=== PATIENT | male | born 2000 | race Caucasian/White ===

== ENCOUNTER 2024-02-14 22:39 | Emergency (ER) | payer BC, SELFPAY ==
[2024-02-14 22:40] VITALS: BP 134/83; PULSE 99; RESP 20; TEMP 36.4; O2SAT 100
[2024-02-15 03:36] VITALS: BP 122/64; PULSE 77; RESP 15; O2SAT 100
--- NOTE | 2024-02-15 05:02 | ED.GENADULT ---
HPI - General Adult General Chief complaint: Wound/Laceration Stated complaint: L arm laceration Time Seen by Provider: 02/15/24 04:18 History of Present Illness HPI narrative: patient 23-year-old gentleman who presents emergency department with chief complaint of laceration to left forearm. The patient reports that he was following his cat and fell patient reports that he has laceration to his left forearm. Patient reports that he has no numbness or tingling in his hand has full range of motion of his hand the patient reports no loss of consciousness reports he is unsure of his last tetanus. Related Data Allergies Allergy/AdvReac Type Severity Reaction Status Date / Time No Known Allergies Allergy Verified 02/15/24 03:37 Review of Systems Review of Systems: A 10 system review of systems was completed on the patient and is negative except for what is stated in the HPI. Nursing and ancillary documentation was reviewed. Exam Narrative: GENERAL: Well-appearing, well-nourished, and in no acute distress. HEAD: Normocephalic, atraumatic. EYES: PERRLA and EOMI. ENT: Nares clear, no rhinorrhea or epistaxis. Mucous membranes moist. NECK: Supple. CHEST: Clear to auscultation. No respiratory distress. HEART: Regular rate and rhythm. No murmur heard. Normal peripheral pulses. ABDOMEN: Soft, nontender, nondistended, normal active bowel sounds. EXTREMITIES: Normal range of motion. No edema. 6 cm laceration left forearm patient is intact motor and sensory distally injury full range of motion of the hand without difficulty no weakness present there is no exposed bone no exposed tendon SKIN: Warm, dry, no rash. NEURO: No focal deficits. Alert and oriented x3. PSYCH: Normal mood and affect. Course Vital Signs Vital signs: Vital Signs Temperature 36.4 C 02/14/24 22:40 Pulse Rate 99 02/14/24 22:40 Respiratory Rate 20 02/14/24 22:40 Blood Pressure 134/83 02/14/24 22:40 Pulse Oximetry 100 02/14/24 22:40 Oxygen Delivery Room Air 02/14/24 22:40 Temperature 36.4 C 02/14/24 22:40 Pulse Rate 77 02/15/24 03:36 Respiratory Rate 15 02/15/24 03:36 Blood Pressure 122/64 02/15/24 03:36 Pulse Oximetry 100 02/15/24 03:36 Oxygen Delivery Room Air 02/14/24 22:40 Procedures Laceration Laceration 1: Date: 02/15/24 Time: 05:05 Site: upper extremity ( left forearm) Side (If applicable): left Size (cm): 6 Description: linear Depth: involves muscle layer Local Anesthetic: lidocaine 1% and with epi Amount of anesthesia used (mL): 10 Pre-repair: wound explored, irrigated, irrigated extensively and deep structures intact ====== Skin Level ====== Skin layer closed with: nylon Size (cm): 4-0 Number of sutures: 13 Technique: simple, interrupted ====== Subcutaneous Layer ====== Subcutaneous layer closed with: vicryl Size: 3-0 Number of sutures: 1 Technique: simple, interrupted ====== Muscle Layer ====== ====== Tendon Layer ====== Medical Decision Making Vital Signs Vital Signs: Vital Signs Temperature 36.4 C 02/14/24 22:40 Pulse Rate 99 02/14/24 22:40 Respiratory Rate 20 02/14/24 22:40 Blood Pressure 134/83 02/14/24 22:40 Pulse Oximetry 100 02/14/24 22:40 Oxygen Delivery Room Air 02/14/24 22:40 Temperature 36.4 C 02/14/24 22:40 Pulse Rate 77 02/15/24 03:36 Respiratory Rate 15 02/15/24 03:36 Blood Pressure 122/64 02/15/24 03:36 Pulse Oximetry 100 02/15/24 03:36 Oxygen Delivery Room Air 02/14/24 22:40 Discharge Plan Discharge Clinical Impression: Laceration of forearm, left Patient Disposition: Home, Self-Care Condition: Stable Instructions: Antibiotic Form, Care For Your Stitches (ED), Laceration (ED) Additional Instructions: please have the sutures removed in 10 days please watc
[2024-02-15] MEDS: TETANUS,DIPHTHERIA,AC PERTUSSIS ADULT (0.5 ML) BOOSTRIX IM (05:25)
[2024-02-15 06:02] VITALS: BP 120/76; PULSE 65; RESP 16; TEMP 36.8; O2SAT 100
== END 2024-02-15 06:05 | disposition home or self-care (01) ==
PROVIDERS: Emergency Provider Emergency Medicine
DX: S51.812A Laceration without foreign body of left forearm, initial encounter (principal); Z23 Encounter for immunization; W19.XXXA Unspecified fall, initial encounter
CPT/HCPCS: 12032; 90471; 90715; 99282

== ENCOUNTER 2024-06-03 09:31 | Emergency (ER) | payer BC, SELFPAY ==
[2024-06-03 09:36] VITALS: BP 157/80; PULSE 103; RESP 16; TEMP 36.8; O2SAT 99
--- NOTE | 2024-06-03 10:16 | ED.URI ---
HPI - URI/Sore Throat General Chief Complaint: Upper Respiratory Infection Stated Complaint: Sinus Pain Time Seen by Provider: 06/03/24 10:00 Source: patient Mode of arrival: ambulatory Limitations: no limitations History of Present Illness HPI Narrative: 23-year-old male presents with complaint of sinus congestion, sinus pressure, sinus headaches for 2-3 days. Afebrile. Not taking any iaca-[id number] medications to treat his symptoms. Reports sinus pressure worst to left maxillary. All systems reviewed and negative except as noted above. Related Data Allergies Allergy/AdvReac Type Severity Reaction Status Date / Time No Known Allergies Allergy Verified 06/03/24 09:51 Review of Systems Review of Systems: CONSTITUTIONAL: Denies fever, chills, or sweats. EYES: Denies visual changes, redness, or discharge. ENT: Reports rhinorrhea, congestion, sinus pressure, ear pressure. Denies sore throat CARDIOVASCULAR: Denies chest pain, palpitations, or edema. RESPIRATORY: Denies cough or dyspnea. GASTROINTESTINAL: Denies abdominal pain, nausea, vomiting, or diarrhea. GENITOURINARY: Denies dysuria or hematuria. SKIN: Denies rash or itching. MUSCULOSKELETAL: Denies back pain, joint pain, or myalgia. NEUROLOGIC: Denies headache, numbness, or weakness. PSYCHIATRIC: Denies anxiety or depression. All other systems reviewed are negative, except as documented in HPI. PMFSH Comments At time of signature, agree with nursing past medical, surgical, social and family history. There is no relevant family history pertinent to the presenting complaint. Exam Narrative: GENERAL: This is a well-nourished, well-developed patient, in no apparent distress. HEAD: normocephalic, atraumatic. EYES: PERRL. Sclera clear/white. Vision is grossly intact. EARS: External ears normal, auditory canals clear and without drainage, Fluid bilateral TMs without erythema or perforation. Hearing grossly intact. NOSE: External nose normal with clear nasal drainage, mild congestion, mild erythema. No significant swelling to nares. No maxillary or frontal sinus tenderness on palpation. THROAT: Mucous membranes moist, Clear postnasal drainage with mild erythema. No significant swelling or exudates. NECK: Neck supple, non-tender without lymphadenopathy, masses or thyromegaly. CARDIOVASCULAR: Regular rate and rhythm without murmurs, gallops, or rubs. RESPIRATORY: Clear to auscultation. Breath sounds equal bilaterally. No wheezes, rales, or rhonchi. SKIN: warm, Dry, intact with no suspicious lesions or rash, good texture and turgor. NEURO: awake, alert, and oriented to person, place and time. There were no obvious focal neurologic abnormalities. EXTREMITIES: No joint tenderness, effusion, or edema noted. Course Course Level of Care: Express Care Visit Vital Signs Vital signs: Vital Signs Temperature 36.8 C 06/03/24 09:36 Pulse Rate 103 H 06/03/24 09:36 Respiratory Rate 16 06/03/24 09:36 Blood Pressure 157/80 H 06/03/24 09:36 Pulse Oximetry 99 06/03/24 09:36 Oxygen Delivery Room Air 06/03/24 09:36 Temperature 36.8 C 06/03/24 09:36 Pulse Rate 103 H 06/03/24 09:36 Respiratory Rate 16 06/03/24 09:36 Blood Pressure 157/80 H 06/03/24 09:36 Pulse Oximetry 99 06/03/24 09:36 Oxygen Delivery Room Air 06/03/24 09:36 Reviewed MDM - URI/Sore Throat MDM Narrative Medical decision making narrative: patient is well-appearing, nontoxic. Afebrile. Not taking any [id number] medications to treat symptoms. Sinus symptoms for 2-3 days. Patient is aware of diagnosis, understands and agrees to treatment plan. Anticipatory guidance given. Patient agrees to follow-up as directed and is aware of reasons to seek care at the emergency department. Portions of this record may have been created with voice recognition software Differential Diagnosis Differential diagnosis: Likely upper respiratory infection, sinusitis and viral infection Discharge Plan Discharge Clinical Impression: Acute viral sinusitis Patient Disposition: Home, Self-Care Condition: Stable Instructions: Antibiotic Form, Sinusitis (ED) Additional Instructions: Take medications as prescribed. Your symptoms are viral and may last 10-14 days. Take ibuprofen or tylenol every 6 to 8 hours as needed for pain/fever. Drink at least 64 oz of water a day. If symptoms not improving follow-up with your primary care physician. Prescriptions: New fluticasone propionate [Flonase Allergy Relief] 50 mcg/actuation spray,suspension 1 spray intranasal BID Qty: 16 0RF Rx Instructions: administer into each nostril cetirizine-pseudoephedrine [Zyrtec-D] 5-120 mg tablet extended release 12 hr 1 tablet PO BID Qty: 20 0RF methylprednisolone [Medrol (Tomas)] 4 mg tablets,dose pack See Rx Instructions PO .COMPLEX Qty: 21 0RF Rx Instructions: orally per package directions Follow-up/Referrals: UNKNOWN,DOCTOR [Primary Care Provider] - Time of Disposition: 10:09
== END 2024-06-03 10:13 | disposition home or self-care (01) ==
PROVIDERS: Emergency Provider Nurse Practitioner Family
DX: J01.90 Acute sinusitis, unspecified (principal)
CPT/HCPCS: 99213; G0463